=== PATIENT | male | born 1985 | race Caucasian/White ===

== ENCOUNTER 2024-05-15 08:25 | Emergency (ER) | payer OTHER ==
[~2024-05-15] VITALS: Ht 172.7 cm; Wt 77.3 kg
[2024-05-15 08:56] VITALS: TEMP 98.3
[2024-05-15 11:45] VITALS: BP 140/99; PULSE 99; RESP 14; O2SAT 98
== END 2024-05-15 12:01 ==
LOC: EMS 08:25
DX: Z03.821 Encounter for observation for suspected ingested foreign body ruled out (principal); Z91.011 Allergy to milk products
CPT/HCPCS: 74176; 99284; Z7502